=== PATIENT | female | born 1940 | race Caucasian/White ===

== ENCOUNTER → 2020-02-21 14:43 | Outpatient (CLI) | payer MEDICARE, SELFPAY ==
[2020-02-21 18:28] LABS: Anion Gap 6 (5-15); BUN 14 mg/dL (7-18); Calcium,Total 9.7 mg/dL (8.5-10.1); Chloride 106 mmol/L (98-107); Creatinine, Serum 0.93 mg/dL (0.55-1.02); EST Glomerular Filtration Rate 62 mL/min (>60); Est Glom Filt Rate - Afr Amer 75 mL/min (>60); Glucose 107 mg/dL (74-106); Magnesium 2.3 mg/dL (1.6-2.6); Potassium 3.7 mmol/L (3.5-5.1); Sodium Level 140 mmol/L (136-145); T4 Total, Thyroxin 9.6 ug/dL (4.8-13.9)
== END ==
PROVIDERS: PCP Family Medicine; Referring Provider Internal Medicine Gastroenterology; Visit Provider Internal Medicine Gastroenterology
DX: K59.00 Constipation, unspecified (principal)
CPT/HCPCS: 36415; 80048; 83735; 84436; 84443

== ENCOUNTER 2022-10-02 11:09 | Emergency (ER) | payer MEDICARE, SELFPAY ==
[2022-10-02 11:10] VITALS: BP 211/97; PULSE 74; RESP 16; TEMP 36.4; O2SAT 94; BMI 22.6
--- NOTE | 2022-10-02 12:29 | EKG12_ITS ---
Test Reason : CP Blood Pressure : / mmHG Vent. Rate : 062 BPM Atrial Rate : 062 BPM P-R Int : 156 ms QRS Dur : 076 ms QT Int : 422 ms P-R-T Axes : 034 -05 154 degrees QTc Int : 428 ms Normal sinus rhythm ST & T wave abnormality, consider anterolateral ischemia Abnormal ECG Confirmed by WAI VALDOVINOS, MARQUIS ([id number]), marketing editor MICHELL DE ([id number]) on 10/03/2022 2:21:20 PM Referred By: LEENA/BRENDON Confirmed By:MARQUIS CARRENO MD
--- NOTE | 2022-10-02 13:10 | RAD_ITS ---
STUDY: X-RAY CHEST REASON FOR EXAM: Female, 82 years old. Chest pain TECHNIQUE: Single AP portable view of the chest. COMPARISON: None. FINDINGS: Increased markings at the lung bases slightly more prominent on the left side with blunting of left costophrenic angle. This may represent either atelectasis and/or early infiltrate. Normal size heart. Normal mediastinum and ravi. Normal visualized pulmonary arteries. There is atherosclerotic tortuosity of the aortic arch and descending thoracic aorta. There are degenerative changes of the visualized thoracic spine. Normal visualized ribs, clavicles, and shoulders. There is no demonstrated abnormality of the visualized soft tissue structures of the upper abdomen. RAD/Chest 1 View (Portable) IMPRESSION: Mild increased markings at the lung bases more prominent on the left side as described. Follow-up recommended. Electronically Signed: Simone Beltran MD at 14:05 EDT ,
--- NOTE | 2022-10-02 13:21 | RAD_ITS ---
STUDY: X-RAY STERNUM REASON FOR EXAM: Female, 82 years old. Injury TECHNIQUE: 3 view(s) of the sternum were obtained. COMPARISON: None. FINDINGS: There is mild arthroses of the bilateral sternoclavicular articulations. Normal manubrium. Normal sternomanubrial joint. Transverse fracture of the proximal body of the sternum with minimal anterior subluxation of the distal fracture fragment. Normal visualized anterior ribs. RAD/Sternum min 2 Views IMPRESSION: Transverse fracture through the proximal portion of the body of the sternum with minimal anterior displacement of the distal fracture fragment. Electronically Signed: Simone Beltran MD at 14:07 EDT ,
--- NOTE | 2022-10-02 13:22 | ED.VIS.CHEST ---
HPI History of Present Illness Chief Complaint: Chest Pain Informant: patient Narrative Narrative: Patient states she injured her chest on 24 September, it has persistently hurt so she presents now to have it evaluated for the first time. She states she was outside in her yard, she got her leg wrapped up accidentally by a cord, this caused her to fall down against a small concrete fountain that was sitting on the ground, hitting her in the sternum. She states initially she had some pain on the right lower rib cage, that went away and then it hurt a little more on the left but basically still hurting in the center. She denies any dyspnea but states it hurts worse to take a breath and move around. She denies any hemoptysis, hematemesis, bright red blood per rectum, or abdominal discomfort/symptoms. She just concerned that it still hurts. This was about 1 week ago. Other than a minor bruise on her left lateral thigh she denies any other injuries and has had no problems walking and states that bruise is gone now. [facility] Medical History Bilateral carotid artery stenosis CVA (cerebral vascular accident) Essential hypertension Mixed hyperlipidemia LEIDA (obstructive sleep apnea) Home Medications aspirin 81 mg tablet,delayed release (Adult Low Dose Aspirin) 81 mg PO DAILY 08/08/22 [History Last Taken Unknown] atorvastatin 20 mg tablet 20 mg PO QHS 08/08/22 [History Last Taken Unknown] losartan 100 mg tablet 100 mg PO DAILY 08/08/22 [History Last Taken Unknown] pantoprazole 40 mg tablet,delayed release 40 mg PO DAILY 08/08/22 [History Last Taken Unknown] biotin 10,000 mcg chewable tablet (Hair, Skin and Nails (biotin)) mcg PO DAILY 09/04/22 [History Last Taken Unknown] cholecalciferol (vitamin D3) 25 mcg (1,000 unit) capsule 25 mcg PO DAILY 09/04/22 [History Last Taken Unknown] coQ10 (ubiquinol) 200 mg capsule (CoQmax Ubiquinol) 200 mg PO DAILY 09/04/22 [History Last Taken Unknown] magnesium oxide 400 mg (241.3 mg magnesium) tablet 400 mg PO DAILY 09/04/22 [History Last Taken Unknown] metoprolol succinate 50 mg tablet,extended release 24 hr (Toprol XL) 50 mg PO DAILY #90 tabs 09/04/22 [Rx Last Taken Unknown] tramadol 50 mg tablet 50 mg PO Q8H PRN Pain 4 days #12 tabs 10/02/22 [Rx Last Taken Unknown] Allergy/AdvReac Type Severity Reaction Status Date / Time demeclocycline Allergy Mild hives Verified 10/02/22 11:12 [From Declomycin] SONDRA Inhibitors AdvReac Unknown Cough Verified 10/02/22 11:12 NSAIDS (Non-Steroidal AdvReac Unknown GI Verified 10/02/22 11:12 Anti-Inflamma Family History Mother Cancer Colon Surgical History History of craniotomy Social History Smoking Status: Never smoker alcohol intake: never substance use type: does not use caffeine: No ROS ROS ED Eyes Eyes: Denies blurry vision or diplopia Cardiovascular Cardiovascular: Reports as per HPI and chest pain; Denies racing heartbeat Respiratory/Chest Respiratory/Chest: Denies cough or dyspnea Gastrointestinal Gastrointestinal: Denies abdominal pain, hematemesis, hematochezia, melena, nausea or vomiting Neurologic Neurologic: Denies headache(s) EXAM Physical Exam Const Vital Signs: 10/02/22 11:10 Temperature 97.5 F L Temperature Source Temporal Pulse Rate 74 Respiratory Rate 16 Blood Pressure 211/97 H Blood Pressure Mean 135 Pulse Ox 94 Oxygen Delivery Method Room Air Positive well nourished and well developed Constitutional Narrative: Well-appearing, conversive in full sentences, no distress General Appearance ED: well developed and NAD HEENT Reports moist mucous membranes Chest Wall inspection of chest normal Chest Narrative: Tender in the lower half of the sternum with there is no crepitance or depression or signs of any trauma to the area, no deformity. No tenderness in the upper part of the sternum nor the clavicles. No other rib tenderness other than some mild parasternal tenderness bilaterally. Equal breath sounds bilaterally. No subcostal tenderness. Resp normal respiratory effort and clear to auscultation bilaterally Cardio regular rate, regular rhythm and no murmurs Rate: Negative for tachycardic GI normal to inspection, nondistended, normoactive bowel sounds, soft to palpation and non-distended Extremity normal to inspection Extremity Narrative: FROM without pain or discomfort throughout all 4 extremities General Extremety ED: Negative for tenderness Neuro oriented x3, CN's II-XII intact bilaterally and gait normal Skin no rashes or lesions noted and no wounds MDM MDM MDM Narrative Medical decision making narrative: Obtained 2 view chest x-ray in addition to 2 view sternal x-ray. On my interpretation, consistent with a lower sternal fracture, that is minimally displaced if any, and it is more anterior not posterior at the distal portion. There is no retropulsion of bone on the x-ray. She is symptomatic from this, but she does not have any symptoms of pneumothorax, she does not appear to have a pneumomediastinum, and there is no ectopy or ST segment deviation on the EKG/rhythm strip. Since she is a week out from this injury, I do not think she needs further work-up. If she did have a myocardial contusion, she is stable and there is no indication for emergent transfer since there would be no emergent treatment at this time. This is why I do not think we need to go further with any CT scanning or troponin measurement. The patient understands this and is comfortable symptomatic care, she is been taken Tylenol, and she is offered something else for pain so we agreed on tramadol as she does not want the strong narcotics which is understandable. Advised to follow-up with her doctor if it is not improving in another week but if she develops any symptoms of intrathoracic pathology to return to the emergency department immediately. Radiography Diagnostic Testing: Clinical Impression(s) from Imaging Studies Chest X-Ray 10/02/22 13:10 IMPRESSION: Mild increased markings at the lung bases more prominent on the left side as described. Follow-up recommended. Electronically Signed: Simone Beltran MD at 14:05 EDT , Sternum X-Ray 10/02/22 13:21 IMPRESSION: Transverse fracture through the proximal portion of the body of the sternum with minimal anterior displacement of the distal fracture fragment. Electronically Signed: Simone Beltran MD at 14:07 EDT , Rhythm Strip Rhythm Strip: Sinus Rhythm Rate: 65 Ectopy: None EKG Initial EKG: Attestation: I personally reviewed and interpreted this EKG as follows: Interpretation: Sinus Rhythm, No Acute Injury Pattern and Inverted T-Waves (lateral precordial) Prior EKG tracings: available for review Prior: Unchanged Discharge Plan Triage Chief Complaint: Chest Pain ED Provider: Alin Gomez Dx/Rx/DC Orders Clinical Impression: Sternal fracture, Fall from slip, trip, or stumble Instructions: ED Rib Contusion or Minor Fracture Prescriptions: New tramadol 50 mg tablet 50 mg PO Q8H PRN (Reason: Pain) 4 Days Qty: 12 0RF No Action CoQmax Ubiquinol 200 mg capsule 200 mg PO DAILY magnesium oxide 400 mg (241.3 mg magnesium) tablet 400 mg PO DAILY cholecalciferol (vitamin D3) 25 mcg (1,000 unit) capsule 25 mcg PO DAILY Hair, Skin and Nails (biotin) 10,000 mcg tablet,chewable PO DAILY metoprolol succinate [Toprol XL] 50 mg tablet extended release 24 hr 50 mg PO DAILY Qty: 90 3RF pantoprazole 40 mg tablet,delayed release (DR/EC) 40 mg PO DAILY atorvastatin 20 mg tablet 20 mg PO QHS losartan 100 mg tablet 100 mg PO DAILY aspirin [Adult Low Dose Aspirin] 81 mg tablet,delayed release (DR/EC) 81 mg PO DAILY Primary Care Provider: Eliud Steele Referrals: Eliud Steele MD [Primary Care Provider] - 1 Week if not improving Activity Restrictions/Additional Instructions: Return to the ER if you have racing heartbeat, sudden shortness of breath, or other new symptoms you are concerned about. You may take Tylenol with the prescription without any issues, as needed if you wish. Disposition Disposition: Home, Self Care
[2022-10-02] MEDS: traMADol 50 MG Tablet PO (14:59)
== END 2022-10-02 15:04 | disposition home or self-care (01) ==
PROVIDERS: Emergency Provider Emergency Medicine; PCP Family Medicine; Visit Provider Emergency Medicine
DX: S22.22XA Fracture of body of sternum, initial encounter for closed fracture (principal); W01.198A Fall on same level from slipping, tripping and stumbling with subsequent striking against other object, initial encounter; Y92.007 Garden or yard of unspecified non-institutional (private) residence as the place of occurrence of the external cause; I10 Essential (primary) hypertension; E78.2 Mixed hyperlipidemia; Z79.82 Long term (current) use of aspirin; Z79.899 Other long term (current) drug therapy; Z86.73 Personal history of transient ischemic attack (TIA), and cerebral infarction without residual deficits
CPT/HCPCS: 71045; 71120; 93005; 99282

== ENCOUNTER → 2023-06-26 | Outpatient (CLI) | payer MEDICARE, SELFPAY | END | disposition home or self-care (01) | LOC: LABSPEC 16:02 | PROVIDERS: PCP Family Medicine; Referring Provider Nurse Practitioner; Visit Provider Nurse Practitioner | DX: N30.00 Acute cystitis without hematuria (principal) | CPT/HCPCS: 87077; 87086; 87088; 87186 ==

== ENCOUNTER → 2024-08-17 | Outpatient (CLI) | payer MEDICARE, SELFPAY ==
[2024-08-17 19:52] LABS: Color, Urine Yellow (Yellow); Glucose, Dipstick 250 mg/dl (Normal); Ketone-Dipstick Negative (Negative); Leukocyte Esterase-Dipstick 100 /ul (Negative); Nitrite-Dipstick Negative (Negative); Occult Blood-Urine 10 /ul (Negative); Protein-Dipstick 30 mg/dl (Negative); Specific Gravity, Urine 1.015 (1.002-1.030); Urine Bilirubin Dipstick Negative (Negative); Urine Clarity Cloudy (Clear); Urine Urobilinogen Normal (Normal)
== END | disposition home or self-care (01) ==
LOC: LABSPEC 16:15
PROVIDERS: PCP Family Medicine; Referring Provider Urology; Visit Provider Urology
DX: R30.0 Dysuria (principal)
CPT/HCPCS: 81002